=== PATIENT | male | born 1980 | race Caucasian/White ===

== ENCOUNTER 2021-10-28 14:59 | Inpatient (IN) | payer BC ==
[2021-10-28 15:55] VITALS: BMI 27.6
[2021-10-28] MEDS ORDERED: ONDANSETRON *ODT* 4 MG TABLET SL PRN (17:33)
[2021-10-28] MEDS ORDERED: P-EPHED 60MG/TRIPROLIDI 2.5MG TABLET PO PRN (17:33)
[2021-10-28] MEDS ORDERED: IBUPROFEN 400 MG TABLET (FP) PO PRN (17:33)
[2021-10-28] MEDS ORDERED: NICOTINE 10 MG CARTRIDGE (INHALER) IH PRN (17:33)
[2021-10-28] MEDS ORDERED: MAGNESIUM CITRATE 300 ML BOTTLE PO PRN (17:33)
[2021-10-28] MEDS ORDERED: MENTHOL/PHENOL 1 EACH UD MM PRN (17:33)
[2021-10-28] MEDS ORDERED: BISMUTH SUBSALICYLATE 524 MG/30 ML PO PRN (17:33)
[2021-10-28] MEDS ORDERED: ACETAMINOPHEN 325 MG TABLET (FP) PO PRN ×2 (17:33)
[2021-10-28] MEDS ORDERED: MAG HYDROX/AL HYDROX/SIMETH 30 ML UNIT-DOSE CUP PO PRN (17:33)
[2021-10-28] MEDS ORDERED: MAGNESIUM HYDROX 2400MG/30ML ORAL SUSPENSION 30 ML CUP PO PRN (17:33)
[2021-10-28] MEDS ORDERED: LOPERAMIDE HCL 2 MG CAPSULE PO PRN (17:33)
[2021-10-28] MEDS ORDERED: methaDONE HCL 10 MG TABLET (FOR DETOX USE ONLY) PO ONE (17:35)
[2021-10-28] MEDS ORDERED: methaDONE HCL 10 MG TABLET (FOR DETOX USE ONLY) ONE (17:45)
[2021-10-28] MEDS: CLINDAMYCIN HCL 150 MG CAPSULE (FP) PO SCH (21:58)
[2021-10-28] MEDS: BACITRACIN 0.9 GM PACKET TP SCH (21:59)
[2021-10-28] MEDS: THIAMINE HCL 100 MG TABLET (FP) PO SCH (21:59)
[2021-10-28] MEDS: hydrOXYzine PAMOATE 25 MG CAPSULE (FP) PO PRN (21:59)
[2021-10-28] MEDS: MELATONIN 5 MG TABLETS PO SCH (22:00)
[2021-10-29] MEDS: CLINDAMYCIN HCL 150 MG CAPSULE (FP) PO SCH ×3 (06:33→22:24)
[2021-10-29] MEDS ORDERED: methaDONE HCL 10 MG TABLET (FOR DETOX USE ONLY) ONE (09:51)
[2021-10-29] MEDS: BACITRACIN 0.9 GM PACKET TP SCH ×2 (10:18→22:24)
[2021-10-29] MEDS: PRENATAL VITAMINS W/ FOLIC ACID TABLET (FP) PO SCH (10:18)
[2021-10-29 13:36] LABS: ALBUMIN 3.1 g/dl (3.4-5.0); CALCIUM 8.8 mg/dL (8.5-10.1)
[2021-10-29 13:37] LABS: BLOOD UREA NITROGEN 16.8 mg/dL (7-18)
[2021-10-29 13:40] LABS: TOT PROT 7.3 g/dl (6.4-8.2)
[2021-10-29 13:41] LABS: BILIRUBIN,TOTAL 0.3 mg/dL (0.2-1); HEMATOCRIT 36.7 % (35.4-49); HEMOGLOBIN 12.3 GM/dL (11.7-16.9); MCH 29.3 pg (25.7-33.7); MCHC 33.4 g/dl (32.0-35.9); MEAN CELL VOLUME 87.7 fl (80-96); MEAN PLT VOLUME 8.5 fl (7.5-11.1); PLATELET COUNT 299 10^3/uL (134-434); RBC 4.18 M/mm3 (4.00-5.60); RDW 14.7 % (11.9-15.9); WHITE BLOOD COUNT 6.4 K/mm3 (4.0-10.0)
[2021-10-29 15:40] LABS: HIV INTERPRETATION NEGATIVE (NEGATIVE)
[2021-10-29] MEDS: MELATONIN 5 MG TABLETS PO SCH (22:24)
[2021-10-29] MEDS: THIAMINE HCL 100 MG TABLET (FP) PO SCH (22:24)
[2021-10-29] MEDS: METHOCARBAMOL 500 MG TABLET PO PRN (22:25)
[2021-10-29] MEDS: cloNIDine HCL 0.1 MG TABLET PO PRN (22:25)
[2021-10-30] MEDS: CLINDAMYCIN HCL 150 MG CAPSULE (FP) PO SCH ×3 (05:26→21:55)
[2021-10-30] MEDS ORDERED: methaDONE HCL 10 MG TABLET (FOR DETOX USE ONLY) PO ONE (10:00)
[2021-10-30] MEDS: PRENATAL VITAMINS W/ FOLIC ACID TABLET (FP) PO SCH (10:21)
[2021-10-30] MEDS: METHOCARBAMOL 500 MG TABLET PO PRN ×2 (10:21→18:41)
[2021-10-30] MEDS: BACITRACIN 0.9 GM PACKET TP SCH ×2 (10:21→21:55)
[2021-10-30] MEDS: diazePAM 5 MG TABLET PO PRN ×2 (10:22→21:58)
[2021-10-30] MEDS: cloNIDine HCL 0.1 MG TABLET PO PRN (18:41)
[2021-10-30] MEDS: hydrOXYzine PAMOATE 25 MG CAPSULE (FP) PO PRN (18:41)
[2021-10-30] MEDS: THIAMINE HCL 100 MG TABLET (FP) PO SCH (21:55)
[2021-10-30] MEDS: MELATONIN 5 MG TABLETS PO SCH (21:56)
[2021-10-31] MEDS: CLINDAMYCIN HCL 150 MG CAPSULE (FP) PO SCH ×3 (05:39→22:04)
[2021-10-31] MEDS ORDERED: methaDONE HCL 10 MG TABLET (FOR DETOX USE ONLY) ONE (09:10)
[2021-10-31] MEDS: METHOCARBAMOL 500 MG TABLET PO PRN ×2 (10:33→22:07)
[2021-10-31] MEDS: diazePAM 5 MG TABLET PO PRN (10:33)
[2021-10-31] MEDS: PRENATAL VITAMINS W/ FOLIC ACID TABLET (FP) PO SCH (10:33)
[2021-10-31] MEDS: BACITRACIN 0.9 GM PACKET TP SCH ×2 (10:33→22:04)
[2021-10-31] MEDS: THIAMINE HCL 100 MG TABLET (FP) PO SCH (22:04)
[2021-10-31] MEDS: MELATONIN 5 MG TABLETS PO SCH (22:05)
[2021-10-31] MEDS: hydrOXYzine PAMOATE 25 MG CAPSULE (FP) PO PRN (22:07)
[2021-11-01] MEDS: CLINDAMYCIN HCL 150 MG CAPSULE (FP) PO SCH ×3 (06:03→22:50)
[2021-11-01] MEDS ORDERED: methaDONE HCL 10 MG TABLET (FOR DETOX USE ONLY) PO ONE (10:00)
[2021-11-01] MEDS: PRENATAL VITAMINS W/ FOLIC ACID TABLET (FP) PO SCH (10:23)
[2021-11-01] MEDS: BACITRACIN 0.9 GM PACKET TP SCH ×2 (10:23→22:50)
[2021-11-01] MEDS: METHOCARBAMOL 500 MG TABLET PO PRN (10:23)
[2021-11-01] MEDS ORDERED: diazePAM 5 MG TABLET PO ONE (10:40)
[2021-11-01] MEDS ORDERED: hydrOXYzine PAMOATE 50 MG CAPSULE (FP) PO ONE (11:00)
[2021-11-01 14:06] LABS: SARS-CoV-2 NAA Not Detected (Not Detected)
[2021-11-01] MEDS: THIAMINE HCL 100 MG TABLET (FP) PO SCH (22:10)
[2021-11-01] MEDS: MELATONIN 5 MG TABLETS PO SCH (22:10)
[2021-11-01] MEDS: hydrOXYzine PAMOATE 25 MG CAPSULE (FP) PO PRN (22:10)
[2021-11-02] MEDS: CLINDAMYCIN HCL 150 MG CAPSULE (FP) PO SCH (06:16)
[2021-11-02 09:08] VITALS: TEMP 97.4
[2021-11-02] MEDS: PRENATAL VITAMINS W/ FOLIC ACID TABLET (FP) PO SCH (10:11)
[2021-11-02] MEDS: BACITRACIN 0.9 GM PACKET TP SCH (10:11)
[2021-11-02 12:42] VITALS: BP 122/73; PULSE 101
== END 2021-11-02 12:55 | disposition other institution (70) | DRG 773 ==
LOC: YASAS 14:59 → Y6N 20:34
PROVIDERS: ADMIT Allergy & Immunology; ATTEND Allergy & Immunology
PROC: HZ2ZZZZ Detoxification Services for Substance Abuse Treatment (ICD-10-PCS; principal; 2021-10-28)
DX: F11.23 Opioid dependence with withdrawal (principal); F10.20 Alcohol dependence, uncomplicated; F14.20 Cocaine dependence, uncomplicated; F15.10 Other stimulant abuse, uncomplicated; F16.10 Hallucinogen abuse, uncomplicated; F12.10 Cannabis abuse, uncomplicated; F17.210 Nicotine dependence, cigarettes, uncomplicated; L03.116 Cellulitis of left lower limb; M71.072 Abscess of bursa, left ankle and foot; Z88.0 Allergy status to penicillin
CPT/HCPCS: 36415; 80053; 85027; 86780; 87389; C9803; J0735; U0003; U0005

== ENCOUNTER 2021-11-02 13:14 | Inpatient (IN) | payer BC ==
[2021-11-02] MEDS ORDERED: IBUPROFEN 400 MG TABLET (FP) PO PRN (14:31)
[2021-11-02] MEDS ORDERED: NICOTINE POLACRILEX 2 MG GUM BUC PRN (14:31)
[2021-11-02] MEDS ORDERED: guaiFENesin 200 MG/10 ML 10 ML UNIT-DOSE CUPS PO PRN (14:31)
[2021-11-02] MEDS ORDERED: MAGNESIUM CITRATE 300 ML BOTTLE PO PRN (14:31)
[2021-11-02] MEDS ORDERED: MAGNESIUM HYDROX 2400MG/30ML ORAL SUSPENSION 30 ML CUP PO PRN (14:31)
[2021-11-02] MEDS ORDERED: LOPERAMIDE HCL 2 MG CAPSULE PO PRN (14:31)
[2021-11-02] MEDS: hydrOXYzine PAMOATE 25 MG CAPSULE (FP) PO PRN ×2 (15:50→21:31)
[2021-11-02] MEDS: METHOCARBAMOL 500 MG TABLET PO PRN (15:50)
[2021-11-02] MEDS: CLINDAMYCIN HCL 150 MG CAPSULE (FP) PO SCH (21:31)
[2021-11-02] MEDS: MELATONIN 5 MG TABLETS PO SCH (21:31)
[2021-11-02] MEDS: THIAMINE HCL 100 MG TABLET (FP) PO SCH (21:31)
[2021-11-02] MEDS: BACITRACIN/POLYMYXIN B SULFATE 15 GM TUBE TP SCH (21:32)
[2021-11-03] MEDS: CLINDAMYCIN HCL 150 MG CAPSULE (FP) PO SCH ×3 (06:30→21:31)
[2021-11-03] MEDS: BACITRACIN/POLYMYXIN B SULFATE 15 GM TUBE TP SCH ×2 (09:06→21:35)
[2021-11-03] MEDS: PRENATAL VITAMINS W/ FOLIC ACID TABLET (FP) PO SCH (09:07)
[2021-11-03] MEDS: MAG HYDROX/AL HYDROX/SIMETH 30 ML UNIT-DOSE CUP PO PRN (10:41)
[2021-11-03] MEDS: FAMOTIDINE 20 MG TABLET PO SCH ×2 (12:02→21:31)
[2021-11-03] MEDS: hydrOXYzine PAMOATE 25 MG CAPSULE (FP) PO PRN ×2 (13:03→21:34)
[2021-11-03] MEDS: NICOTINE 10 MG CARTRIDGE (INHALER) IH PRN ×2 (13:03→21:35)
[2021-11-03] MEDS ORDERED: BUPRENORPHINE/NALOXONE 2 MG/0.5 MG FILM PACKET SL ONE (15:45)
[2021-11-03] MEDS: MELATONIN 5 MG TABLETS PO SCH (21:31)
[2021-11-03] MEDS: THIAMINE HCL 100 MG TABLET (FP) PO SCH (21:31)
[2021-11-04] MEDS: CLINDAMYCIN HCL 150 MG CAPSULE (FP) PO SCH ×3 (07:07→21:25)
[2021-11-04] MEDS: MAG HYDROX/AL HYDROX/SIMETH 30 ML UNIT-DOSE CUP PO PRN ×2 (07:34→21:33)
[2021-11-04] MEDS: BACITRACIN/POLYMYXIN B SULFATE 15 GM TUBE TP SCH ×2 (09:58→23:37)
[2021-11-04] MEDS: PRENATAL VITAMINS W/ FOLIC ACID TABLET (FP) PO SCH (09:58)
[2021-11-04] MEDS: FAMOTIDINE 20 MG TABLET PO SCH ×2 (09:58→21:25)
[2021-11-04] MEDS ORDERED: BUPRENORPHINE/NALOXONE 2 MG/0.5 MG FILM PACKET SL ONE (15:16)
[2021-11-04] MEDS: BUPRENORPHINE/NALOXONE 4 MG/1 MG FILM PACKET SL SCH (20:09)
[2021-11-04] MEDS: hydrOXYzine PAMOATE 25 MG CAPSULE (FP) PO PRN (21:25)
[2021-11-04] MEDS: THIAMINE HCL 100 MG TABLET (FP) PO SCH (21:25)
[2021-11-04] MEDS: MELATONIN 5 MG TABLETS PO SCH (21:25)
[2021-11-05] MEDS: BACITRACIN/POLYMYXIN B SULFATE 15 GM TUBE TP SCH ×2 (09:53→21:20)
[2021-11-05] MEDS: BUPRENORPHINE/NALOXONE 4 MG/1 MG FILM PACKET SL SCH (09:53)
[2021-11-05] MEDS: FAMOTIDINE 20 MG TABLET PO SCH ×2 (09:53→21:20)
[2021-11-05] MEDS: PRENATAL VITAMINS W/ FOLIC ACID TABLET (FP) PO SCH (09:53)
[2021-11-05] MEDS: NICOTINE 10 MG CARTRIDGE (INHALER) IH PRN ×2 (11:52→19:59)
[2021-11-05] MEDS: METHOCARBAMOL 500 MG TABLET PO PRN (18:35)
[2021-11-05] MEDS: BUPRENORPHINE/NALOXONE 8 MG/2 MG FILM PACKET SL SCH (19:59)
[2021-11-05] MEDS: THIAMINE HCL 100 MG TABLET (FP) PO SCH (21:20)
[2021-11-05] MEDS: MELATONIN 5 MG TABLETS PO SCH (21:20)
[2021-11-05] MEDS: hydrOXYzine PAMOATE 25 MG CAPSULE (FP) PO PRN (21:21)
[2021-11-06] MEDS: BACITRACIN/POLYMYXIN B SULFATE 15 GM TUBE TP SCH ×2 (09:26→21:03)
[2021-11-06] MEDS: BUPRENORPHINE/NALOXONE 8 MG/2 MG FILM PACKET SL SCH ×2 (09:26→20:05)
[2021-11-06] MEDS: PRENATAL VITAMINS W/ FOLIC ACID TABLET (FP) PO SCH (09:26)
[2021-11-06] MEDS: FAMOTIDINE 20 MG TABLET PO SCH ×2 (09:26→21:00)
[2021-11-06 12:08] LABS: SARS-CoV-2 NAA Not Detected (Not Detected)
[2021-11-06] MEDS: THIAMINE HCL 100 MG TABLET (FP) PO SCH (21:00)
[2021-11-06] MEDS: METHOCARBAMOL 500 MG TABLET PO PRN (21:04)
[2021-11-06] MEDS: hydrOXYzine PAMOATE 25 MG CAPSULE (FP) PO PRN (21:04)
[2021-11-06] MEDS: OLANZapine 5 MG TABLET PO SCH (21:40)
[2021-11-07] MEDS: FAMOTIDINE 20 MG TABLET PO SCH ×2 (11:00→21:16)
[2021-11-07] MEDS: PRENATAL VITAMINS W/ FOLIC ACID TABLET (FP) PO SCH (11:00)
[2021-11-07] MEDS: BACITRACIN/POLYMYXIN B SULFATE 15 GM TUBE TP SCH ×2 (11:00→21:16)
[2021-11-07] MEDS: BUPRENORPHINE/NALOXONE 8 MG/2 MG FILM PACKET SL SCH ×2 (11:00→20:22)
[2021-11-07] MEDS: THIAMINE HCL 100 MG TABLET (FP) PO SCH (21:16)
[2021-11-07] MEDS: OLANZapine 5 MG TABLET PO SCH (21:16)
[2021-11-07] MEDS: MAG HYDROX/AL HYDROX/SIMETH 30 ML UNIT-DOSE CUP PO PRN (21:18)
[2021-11-08] MEDS: PRENATAL VITAMINS W/ FOLIC ACID TABLET (FP) PO SCH (09:39)
[2021-11-08] MEDS: BACITRACIN/POLYMYXIN B SULFATE 15 GM TUBE TP SCH ×2 (09:39→21:25)
[2021-11-08] MEDS: FAMOTIDINE 20 MG TABLET PO SCH ×2 (09:39→21:24)
[2021-11-08] MEDS: BUPRENORPHINE/NALOXONE 8 MG/2 MG FILM PACKET SL SCH ×2 (09:40→20:17)
[2021-11-08] MEDS: OLANZapine 5 MG TABLET PO SCH (21:24)
[2021-11-08] MEDS: THIAMINE HCL 100 MG TABLET (FP) PO SCH (21:24)
[2021-11-08] MEDS: hydrOXYzine PAMOATE 25 MG CAPSULE (FP) PO PRN (21:26)
[2021-11-09] MEDS: PRENATAL VITAMINS W/ FOLIC ACID TABLET (FP) PO SCH (10:21)
[2021-11-09] MEDS: FAMOTIDINE 20 MG TABLET PO SCH ×2 (10:21→21:25)
[2021-11-09] MEDS: BACITRACIN/POLYMYXIN B SULFATE 15 GM TUBE TP SCH ×2 (10:21→22:58)
[2021-11-09] MEDS: BUPRENORPHINE/NALOXONE 8 MG/2 MG FILM PACKET SL SCH ×2 (10:22→20:31)
[2021-11-09] MEDS: OLANZapine 5 MG TABLET PO SCH (21:25)
[2021-11-09] MEDS: METHOCARBAMOL 500 MG TABLET PO PRN (21:25)
[2021-11-09] MEDS: hydrOXYzine PAMOATE 25 MG CAPSULE (FP) PO PRN (21:28)
[2021-11-09] MEDS: THIAMINE HCL 100 MG TABLET (FP) PO SCH (22:58)
[2021-11-10] MEDS: PRENATAL VITAMINS W/ FOLIC ACID TABLET (FP) PO SCH (09:49)
[2021-11-10] MEDS: FAMOTIDINE 20 MG TABLET PO SCH ×2 (09:49→21:39)
[2021-11-10] MEDS: BACITRACIN/POLYMYXIN B SULFATE 15 GM TUBE TP SCH ×2 (09:49→21:41)
[2021-11-10] MEDS: BUPRENORPHINE/NALOXONE 8 MG/2 MG FILM PACKET SL SCH ×2 (09:50→21:39)
[2021-11-10] MEDS: OLANZapine 5 MG TABLET PO SCH (21:38)
[2021-11-10] MEDS: THIAMINE HCL 100 MG TABLET (FP) PO SCH (21:38)
[2021-11-10] MEDS: hydrOXYzine PAMOATE 25 MG CAPSULE (FP) PO PRN (21:39)
[2021-11-11] MEDS: BACITRACIN/POLYMYXIN B SULFATE 15 GM TUBE TP SCH ×2 (09:13→21:24)
[2021-11-11] MEDS: PRENATAL VITAMINS W/ FOLIC ACID TABLET (FP) PO SCH (09:13)
[2021-11-11] MEDS: FAMOTIDINE 20 MG TABLET PO SCH ×2 (09:13→21:20)
[2021-11-11] MEDS: ARIPiprazole 5 MG TABLET PO SCH (12:48)
[2021-11-11] MEDS: BUPRENORPHINE/NALOXONE 8 MG/2 MG FILM PACKET SL SCH ×2 (12:48→21:19)
[2021-11-11] MEDS: THIAMINE HCL 100 MG TABLET (FP) PO SCH (21:19)
[2021-11-11] MEDS: METHOCARBAMOL 500 MG TABLET PO PRN (21:19)
[2021-11-11] MEDS: hydrOXYzine PAMOATE 25 MG CAPSULE (FP) PO PRN (21:20)
[2021-11-11] MEDS: SUVOREXANT 10 MG TABLET PO PRN (21:22)
[2021-11-11] MEDS: ACETAMINOPHEN 325 MG TABLET (FP) PO PRN (21:28)
[2021-11-12] MEDS ORDERED: BUPRENORPHINE/NALOXONE 8 MG/2 MG FILM PACKET SL ONE (09:24)
[2021-11-12] MEDS: ARIPiprazole 5 MG TABLET PO SCH (11:03)
[2021-11-12] MEDS: FAMOTIDINE 20 MG TABLET PO SCH ×2 (11:03→21:23)
[2021-11-12] MEDS: BACITRACIN/POLYMYXIN B SULFATE 15 GM TUBE TP SCH ×2 (11:03→22:12)
[2021-11-12] MEDS: BENZOCAINE 20 % GEL TUBE MM PRN ×2 (11:04→21:23)
[2021-11-12] MEDS: PRENATAL VITAMINS W/ FOLIC ACID TABLET (FP) PO SCH (11:08)
[2021-11-12] MEDS ORDERED: BUPRENORPHINE/NALOXONE 8 MG/2 MG FILM PACKET SL SCH (20:00)
[2021-11-12] MEDS ORDERED: BUPRENORPHINE/NALOXONE 4 MG/1 MG FILM PACKET SL SCH (20:00)
[2021-11-12] MEDS: SUVOREXANT 10 MG TABLET PO PRN (21:21)
[2021-11-12] MEDS: METHOCARBAMOL 500 MG TABLET PO PRN (21:22)
[2021-11-12] MEDS: THIAMINE HCL 100 MG TABLET (FP) PO SCH (22:12)
[2021-11-13] MEDS ORDERED: ARIPiprazole 5 MG TABLET ONE (08:13)
[2021-11-13] MEDS: ARIPiprazole 10 MG TABLET PO SCH (09:47)
[2021-11-13] MEDS: BUPRENORPHINE/NALOXONE 4 MG/1 MG FILM PACKET SL SCH ×2 (09:48→20:26)
[2021-11-13] MEDS: FAMOTIDINE 20 MG TABLET PO SCH ×2 (09:48→21:28)
[2021-11-13] MEDS: BENZOCAINE 20 % GEL TUBE MM PRN (09:48)
[2021-11-13] MEDS: PRENATAL VITAMINS W/ FOLIC ACID TABLET (FP) PO SCH (09:48)
[2021-11-13] MEDS: BACITRACIN/POLYMYXIN B SULFATE 15 GM TUBE TP SCH ×2 (09:48→22:11)
[2021-11-13] MEDS: ACETAMINOPHEN 325 MG TABLET (FP) PO PRN (11:30)
[2021-11-13] MEDS: IBUPROFEN 600 MG TABLET (FP) PO PRN (21:27)
[2021-11-13] MEDS: hydrOXYzine PAMOATE 25 MG CAPSULE (FP) PO PRN (21:28)
[2021-11-13] MEDS: SUVOREXANT 15 MG TABLET PO PRN (21:29)
[2021-11-13] MEDS: THIAMINE HCL 100 MG TABLET (FP) PO SCH (22:11)
[2021-11-14] MEDS: LIDOCAINE VISCOUS 2% ORAL/TOP 15 ML UNIT-DOSE CUP MM PRN (07:43)
[2021-11-14] MEDS: IBUPROFEN 600 MG TABLET (FP) PO PRN ×2 (07:44→20:19)
[2021-11-14] MEDS ORDERED: ARIPiprazole 5 MG TABLET ONE (08:59)
[2021-11-14] MEDS: BUPRENORPHINE/NALOXONE 4 MG/1 MG FILM PACKET SL SCH ×2 (10:49→20:19)
[2021-11-14] MEDS: BACITRACIN/POLYMYXIN B SULFATE 15 GM TUBE TP SCH ×2 (10:50→21:21)
[2021-11-14] MEDS: FAMOTIDINE 20 MG TABLET PO SCH ×2 (10:50→21:20)
[2021-11-14] MEDS: ARIPiprazole 10 MG TABLET PO SCH (10:50)
[2021-11-14] MEDS: PRENATAL VITAMINS W/ FOLIC ACID TABLET (FP) PO SCH (10:50)
[2021-11-14] MEDS: SUVOREXANT 15 MG TABLET PO PRN (21:20)
[2021-11-14] MEDS: THIAMINE HCL 100 MG TABLET (FP) PO SCH (21:21)
[2021-11-15 07:35] VITALS: TEMP 97.3
[2021-11-15] MEDS: BUPRENORPHINE/NALOXONE 4 MG/1 MG FILM PACKET SL SCH ×2 (09:54→20:10)
[2021-11-15] MEDS: FAMOTIDINE 20 MG TABLET PO SCH ×2 (09:55→21:31)
[2021-11-15] MEDS: ARIPiprazole 10 MG TABLET PO SCH (09:55)
[2021-11-15] MEDS: BACITRACIN/POLYMYXIN B SULFATE 15 GM TUBE TP SCH ×2 (09:56→21:32)
[2021-11-15] MEDS: PRENATAL VITAMINS W/ FOLIC ACID TABLET (FP) PO SCH (09:56)
[2021-11-15] MEDS: SUVOREXANT 15 MG TABLET PO PRN (21:30)
[2021-11-15] MEDS: THIAMINE HCL 100 MG TABLET (FP) PO SCH (21:33)
[2021-11-16 06:46] VITALS: BP 113/75; PULSE 84
[2021-11-16] MEDS ORDERED: ARIPiprazole 5 MG TABLET ONE (08:16)
[2021-11-16] MEDS: ARIPiprazole 10 MG TABLET PO SCH (09:08)
[2021-11-16] MEDS: PRENATAL VITAMINS W/ FOLIC ACID TABLET (FP) PO SCH (09:09)
[2021-11-16] MEDS: BUPRENORPHINE/NALOXONE 4 MG/1 MG FILM PACKET SL SCH ×2 (09:09→20:55)
[2021-11-16] MEDS: BACITRACIN/POLYMYXIN B SULFATE 15 GM TUBE TP SCH ×2 (09:09→21:00)
[2021-11-16] MEDS: FAMOTIDINE 20 MG TABLET PO SCH ×2 (09:09→21:00)
[2021-11-16] MEDS: LIDOCAINE VISCOUS 2% ORAL/TOP 15 ML UNIT-DOSE CUP MM PRN (16:50)
[2021-11-16] MEDS: IBUPROFEN 600 MG TABLET (FP) PO PRN (16:53)
[2021-11-16] MEDS: NICOTINE 10 MG CARTRIDGE (INHALER) IH PRN (17:10)
[2021-11-16] MEDS: THIAMINE HCL 100 MG TABLET (FP) PO SCH (21:00)
[2021-11-16] MEDS ORDERED: SUVOREXANT 15 MG TABLET PO PRN (22:00)
[2021-11-17] MEDS: FAMOTIDINE 20 MG TABLET PO SCH (09:27)
[2021-11-17] MEDS: BUPRENORPHINE/NALOXONE 4 MG/1 MG FILM PACKET SL SCH (09:27)
[2021-11-17] MEDS: PRENATAL VITAMINS W/ FOLIC ACID TABLET (FP) PO SCH (09:28)
[2021-11-17] MEDS: ARIPiprazole 10 MG TABLET PO SCH (09:28)
[2021-11-17] MEDS: BACITRACIN/POLYMYXIN B SULFATE 15 GM TUBE TP SCH (09:28)
== END 2021-11-17 11:15 | disposition home or self-care (01) | DRG 772 ==
LOC: YASAS 13:14 → Y3E 13:15
PROVIDERS: ADMIT Allergy & Immunology; ATTEND Allergy & Immunology
PROC: HZ42ZZZ Group Counseling for Substance Abuse Treatment, Cognitive-Behavioral (ICD-10-PCS; principal; 2021-11-02)
DX: F11.20 Opioid dependence, uncomplicated (principal); F10.20 Alcohol dependence, uncomplicated; F15.20 Other stimulant dependence, uncomplicated; F14.10 Cocaine abuse, uncomplicated; F12.20 Cannabis dependence, uncomplicated; F17.210 Nicotine dependence, cigarettes, uncomplicated; F20.9 Schizophrenia, unspecified; F31.9 Bipolar disorder, unspecified; F41.9 Anxiety disorder, unspecified; K08.89 Other specified disorders of teeth and supporting structures; M71.072 Abscess of bursa, left ankle and foot; Z88.0 Allergy status to penicillin; Z59.01 Sheltered homelessness; Z56.0 Unemployment, unspecified
CPT/HCPCS: C9803; U0003; U0005